=== PATIENT | male | born 1955 | race African-American/Black ===

== ENCOUNTER 2018-01-05 21:04 | Inpatient (IN) ==
[2018-01-05] MEDS ORDERED: DILTIAZEM 50 MG/10 ML VIAL IV STA ×2 (21:31→22:12)
[2018-01-05] MEDS ORDERED: DILTIAZEM 25 MG/5 ML VIAL IV ONE (21:33)
[2018-01-05] MEDS ORDERED: ONDANSETRON 4 MG/2 ML VIAL IV STA (21:50)
[2018-01-05] MEDS ORDERED: MORPHINE 4 MG/1 ML VIAL IV STA (21:50)
[2018-01-05 22:10] LABS: Basophils % 0.2 % (0.0-0.8); Eosinophils # 0.1 10*3/uL (0.0-0.87); Eosinophils % 0.8 % (0.00-10.9); Hematocrit 42.7 VOL% (42.0-52.0); Hemoglobin 14.7 GM/DL (14.0-18.0); Immature Granulocytes % 0.5 %; Immature Granulocytes Absolute 0.04 #; Lymphocytes # 1.8 10*3/uL (1.4-4.0); Mean Corpuscular HGB Conc 34.4 GM/DL (32-36); Mean Corpuscular Hemoglobin 35 PG (27-34); Mean Corpuscular Volume 101.7 FL (87-102); Monocytes # 0.8 10*3/uL (0.11-0.8); Monocytes % 8.9 % (1.7-12.7); Neutrophils % 68.6 % (38.7-73.9); Platelet Count 190 T/CUMM (130-400); Red Cell Distribution Width 11.9 % (9.3-17.3); White Blood Count 8.7 T/CUMM (4-12)
[2018-01-05] MEDS ORDERED: SODIUM CHLORIDE 0.9% 1,000 ML IV STA (22:11)
[2018-01-05] MEDS ORDERED: ONDANSETRON 4 MG/2 ML VIAL IV PRN (22:19)
[2018-01-05 22:28] LABS: Alanine Aminotransferase 51 U/L (16-61); Albumin 3.7 G/DL (3.4-5.0); Alkaline Phosphatase 66 U/L (45-117); Aspartate Amino Transferase 35 U/L (0-37); Bilirubin,Total < 0.39 MG/DL (0.2-1.0); Blood Urea Nitrogen 11 MG/DL (7-18); Calcium 8.8 MG/DL (8.5-10.1); Glucose 133 MG/DL (74-106); Osmolality,Calculated 273.8 MOS/KG (273-304); Sodium 137 MMOL/L (136-145); Total Protein 9.1 G/DL (6.4-8.3)
[2018-01-05] MEDS ORDERED: HYDROmorphone 2 MG/1 ML VIAL IV STA (22:35)
[2018-01-06 04:06] LABS: Basophils % 0.2 % (0.0-0.8); Eosinophils # 0.1 10*3/uL (0.0-0.87); Eosinophils % 1.3 % (0.00-10.9); Hematocrit 36.9 VOL% (42.0-52.0); Hemoglobin 12.6 GM/DL (14.0-18.0); Immature Granulocytes % 0.5 %; Immature Granulocytes Absolute 0.04 #; Lymphocytes # 2.3 10*3/uL (1.4-4.0); Lymphocytes % 27.6 % (21.2-54.2); Mean Corpuscular HGB Conc 34.1 GM/DL (32-36); Mean Corpuscular Hemoglobin 35 PG (27-34); Mean Corpuscular Volume 103.4 FL (87-102); Mean Platelet Volume 10.9 FL (9.6-12.0); Monocytes % 11.5 % (1.7-12.7); Neutrophils # 4.9 10*3/uL (1.4-7.4); Neutrophils % 58.9 % (38.7-73.9); Platelet Count 162 T/CUMM (130-400); Red Blood Count 3.57 MC/CUMM (3.8-5.5); Red Cell Distribution Width 12.2 % (9.3-17.3); White Blood Count 8.3 T/CUMM (4-12)
[2018-01-06 04:30] LABS: Albumin 3.2 G/DL (3.4-5.0); Bilirubin,Total 0.4 MG/DL (0.2-1.0); Calcium 7.9 MG/DL (8.5-10.1); Osmolality,Calculated 279.4 MOS/KG (273-304); Potassium 4.1 MMOL/L (3.5-5.1); Total Protein 7.9 G/DL (6.4-8.3)
[2018-01-06] MEDS ORDERED: ENOXAPARIN 80 MG/0.8 ML SYRINGE SUBCUT SCH (09:00)
[2018-01-06] MEDS: LISINOPRIL 20 MG TABLET PO SCH (09:51)
[2018-01-06] MEDS: DILTIAZEM CD 120 MG CAPSULE PO SCH (09:51)
[2018-01-06] MEDS: PANTOPRAZOLE 40 MG TABLET PO SCH (09:51)
[2018-01-06] MEDS: LACTATED RINGERS 1,000 ML IV SCH ×2 (11:45→22:20)
[2018-01-06] MEDS: MORPHINE 4 MG/1 ML VIAL IV PRN (22:21)
[2018-01-07 05:33] LABS: Basophils % 0.2 % (0.0-0.8); Eosinophils # 0.1 10*3/uL (0.0-0.87); Eosinophils % 2.1 % (0.00-10.9); Hemoglobin 9.9 GM/DL (14.0-18.0); Immature Granulocytes % 0.4 %; Immature Granulocytes Absolute 0.02 #; Lymphocytes # 1.9 10*3/uL (1.4-4.0); Lymphocytes % 38.6 % (21.2-54.2); Mean Corpuscular Hemoglobin 35 PG (27-34); Mean Corpuscular Volume 105.3 FL (87-102); Mean Platelet Volume 11.1 FL (9.6-12.0); Monocytes # 0.6 10*3/uL (0.11-0.8); Monocytes % 12.6 % (1.7-12.7); Neutrophils # 2.2 10*3/uL (1.4-7.4); Neutrophils % 46.1 % (38.7-73.9); Platelet Count 143 T/CUMM (130-400); Red Blood Count 2.85 MC/CUMM (3.8-5.5); Red Cell Distribution Width 12.2 % (9.3-17.3); White Blood Count 4.9 T/CUMM (4-12)
[2018-01-07 05:52] LABS: Calcium 7.9 MG/DL (8.5-10.1); Potassium 3.8 MMOL/L (3.5-5.1)
[2018-01-07] MEDS: LEVOTHYROXINE 88 MCG TABLET PO SCH (06:32)
[2018-01-07] MEDS: LACTATED RINGERS 1,000 ML IV SCH ×2 (08:10→17:30)
[2018-01-07] MEDS: DILTIAZEM CD 120 MG CAPSULE PO SCH (09:04)
[2018-01-07] MEDS: MORPHINE 4 MG/1 ML VIAL IV PRN ×3 (09:06→19:14)
[2018-01-07] MEDS: PANTOPRAZOLE 40 MG TABLET PO SCH (09:06)
[2018-01-07] MEDS: ASPIRIN EC 81 MG TABLET PO SCH (09:06)
[2018-01-07] MEDS: LISINOPRIL 20 MG TABLET PO SCH (09:06)
[2018-01-08] MEDS: MORPHINE 4 MG/1 ML VIAL IV PRN ×3 (02:06→23:27)
[2018-01-08 05:40] LABS: Albumin 2.8 G/DL (3.4-5.0); Bilirubin,Total 0.5 MG/DL (0.2-1.0); Potassium 3.6 MMOL/L (3.5-5.1); Total Protein 6.7 G/DL (6.4-8.3)
[2018-01-08] MEDS: LEVOTHYROXINE 88 MCG TABLET PO SCH (07:54)
[2018-01-08] MEDS ORDERED: DILTIAZEM CD 120 MG CAPSULE PO SCH (08:47)
[2018-01-08] MEDS: LISINOPRIL 20 MG TABLET PO SCH (09:21)
[2018-01-08] MEDS: PANTOPRAZOLE 40 MG TABLET PO SCH (09:21)
[2018-01-08] MEDS: ASPIRIN EC 81 MG TABLET PO SCH (09:22)
[2018-01-08] MEDS ORDERED: DILTIAZEM 90 MG TABLET PO SCH (09:30)
[2018-01-08] MEDS ORDERED: DILTIAZEM 60 MG TABLET PO SCH (11:14)
[2018-01-08] MEDS: DILTIAZEM 30 MG TABLET PO SCH ×2 (13:00→20:35)
[2018-01-09] MEDS: MORPHINE 4 MG/1 ML VIAL IV PRN (04:06)
[2018-01-09] MEDS: LISINOPRIL 20 MG TABLET PO SCH ×2 (06:28→09:01)
[2018-01-09] MEDS: LEVOTHYROXINE 88 MCG TABLET PO SCH (06:28)
[2018-01-09] MEDS ORDERED: HEPARIN LOCK FLUSH 500 UNIT/5 ML SYRINGE IV ONE (07:29)
[2018-01-09 07:56] VITALS: BP 195/102
[2018-01-09] MEDS: PANTOPRAZOLE 40 MG TABLET PO SCH (10:16)
[2018-01-09] MEDS: DILTIAZEM 30 MG TABLET PO SCH (10:16)
[2018-01-09] MEDS: ASPIRIN EC 81 MG TABLET PO SCH (10:16)
== END 2018-01-09 10:58 | disposition home or self-care (01) | DRG 392 ==
LOC: N.ED 21:04 → N.EDINP 22:19 → SUATTDRO 22:19 → N.ICU 01-06 04:53 → N.3E 01-07 16:54
PROVIDERS: ADMIT Surgery; ATTEND Hospitalist